=== PATIENT | female | born 1980 | race Caucasian/White ===

== ENCOUNTER 2018-01-23 09:50 | Inpatient (IN) | payer OTHER ==
[2018-01-23 11:00] VITALS: BMI 29.7
--- NOTE | 2018-01-23 13:21 | HP ---
COWS - Scale Resting Pulse: 2= NE 101-120 Sweatin= Chills/Flushing Restless Observation: 1= Difficult to Sit Still Pupil Size: 0= Normal to Room Light Bone or Joint Aches: 2= Severe Diffuse Aches Runny Nose/ Eye Tearin= Runny Nose/Eyes GI Upset > 30mins: 2= Nausea/Diarrhea Tremor Observation: 2= Slight Tremor Visible Yawning Observation: 1= 1-2x During Session Anxiety or Irritability: 2=Irritable/Anxious Goose Flesh Skin: 3=Piloerection COWS Score: 18 Admission [facility] Chief Complaint: "I need to Detox off of Heroin." Patient is here to Detox from Heroin. Allergies/Adverse Reactions: Allergies Allergy/AdvReac Type Severity Reaction Status Date / Time latex Allergy Severe Rash Verified 01/23/18 10:56 codeine AdvReac Severe Nausea Verified 01/23/18 10:56 History of Present Illness: Patient is a 37 YO female here to Detox from Heroin. Patient had one previous Detox / Rehab admission at [facility] in 07/2015. Patient had a Rehab admission at " [facility]' [facility]) in 2015. Longest period of non-drug use in recent years: approx. 1 year (11/2015 - 11/2016). Exam Limitations: No Limitations - Ebola screening Have you traveled outside of the country in the last 21 days: No Have you had contact with anyone from an Ebola affected area: No Have you been sick,other than usual withdrawal symptoms: No Do you have a fever: No - Review of Systems Constitutional: Chills, Diaphoresis, Loss of Appetite, Malaise, Night Sweats, Changes in sleep EENT: reports: Blurred Vision, Tearing, Nose Congestion, Sinus Pressure Respiratory: reports: SOB with Exertion Cardiac: reports: No Symptoms Reported GI: reports: Diarrhea, Nausea, Poor Appetite, Vomiting, Indigestion : reports: No Symptoms Reported Musculoskeletal: reports: Back Pain, Joint Pain, Muscle Pain, Joint Stiffness Integumentary: reports: No Symptoms Reported Neuro: reports: Headache, Tremors Endocrine: reports: No Symptoms Reported Hematology: reports: No Symptoms Reported Psychiatric: reports: Judgement Intact, Mood/Affect Appropiate, Orientated x3, Anxious, Depressed (On meds.) Other Systems: Reviewed and Negative Patient History - Patient Medical History Hx Anemia: No Hx Asthma: No Hx Chronic Obstructive Pulmonary Disease (COPD): No Hx Cancer: No Hx Cardiac Disorders: No Hx Congestive Heart Failure: No Hx Hypertension: No Hx Hypercholesterolemia: No Hx Pacemaker: No HX Cerebrovascular Accident: No Hx Seizures: No Hx Dementia: No Hx Diabetes: No Hx Gastrointestinal Disorders: No Hx Liver Disease: No Hx Genitourinary Disorders: No Hx Sexually Transmitted Disorders: No Hx Renal Disease (ESRD): No Hx Thyroid Disease: No Hx Human Immunodeficiency Virus (HIV): No (Last Tested: 2014: NEGATIVE.) Hx Hepatitis C: No (Last Tested: 2014: NEGATIVE.) Hx Depression: Yes (On meds.; has not taken for last several weeks.) Hx Suicide Attempt: No (PATIENT DENIES CURRENT SI / HI.) Hx Bipolar Disorder: No Hx Schizophrenia: No Other Medical History: PTSD, Anxiety. Meds. in past,not taken for last several weeks. Hx Migraines - Patient Surgical History Past Surgical History: Yes Hx Neurologic Surgery: No Hx Cataract Extraction: No Hx Cardiac Surgery: No Hx Lung Surgery: No Hx Breast Surgery: Yes (bilateral mastectomy (2015).) Hx Breast Biopsy: No Hx Abdominal Surgery: Yes (removal of fibroid (2015)) Hx Appendectomy: Yes (2009.) Hx Cholecystectomy: No Hx Genitourinary Surgery: No Hx Section: No Hx Orthopedic Surgery: No Hx Hysterectomy: No Other Surgical History: Cyst removed from Ovary (age 18). Anesthesia Reaction: Yes (nausea,vomiting) - PPD History Previous Implant?: Yes Documented Results: Negative w/o proof Implanted On Prior [facility] Admission?: Yes Date: 07/17/15 Results: 0 mm PPD to be Administered?: Yes - Reproductive History Patient is a Female of Child Bearing Age (11 -55 yrs old): Yes LMP comment: Patient reports that she has not menstruated for last several months. Patient : No - Smoking Cessation Smoking history: Never smoked Have you smoked in the past 12 months: No Cigars Per Day: 0 Hx Chewing Tobacco Use: No Initiated information on smoking cessation: No - Substance & Tx. History Hx Alcohol Use: No Hx Substance Use: Yes Substance Use Type: Heroin Hx Substance Use Treatment: Yes (Rehab at [facility] ([facility] [place]): 2015; Detox/Rehab at [facility]; 2015.) - Substances Abused Heroin Route: Inhalation Frequency: Daily Amount used: 10 bags Age of first use: 34 Date of Last Use: 01/21/18 Family Disease History - Family Disease History Family Disease History: Other: Grandparent (Alzheimer's Disease.), Father ( brain CA ), Mother (breast cancer age 19; Living.), Sister (breast CA, Living.) Admission Physical Exam [facility] - Vital Signs Vital Signs: Vital Signs - 24 hr 01/23/18 10:53 Temperature 98.3 F Pulse Rate 110 H Respiratory 20 Rate Blood Pressure 149/85 - Physical General Appearance: Yes: Nourished, Appropriately Dressed, Mild Distress, Tremorous, Sweating, Anxious HEENTM: Yes: Hearing grossly Normal, Normocephalic, Normal Voice, ABBEY, Pharynx Normal Respiratory: Yes: Chest Non-Tender, Lungs Clear, No Respiratory Distress, No Accessory Muscle Use Neck: Yes: No masses,lesions,Nodules, Supple, Trachea in good position Breast: Yes: Breast Exam Deferred Cardiology: Yes: Regular Rhythm, Regular Rate, S1, S2 Abdominal: Yes: Normal Bowel Sounds, Non Tender, Flat, Soft Genitourinary: Yes: Within Normal Limits Back: Yes: Decreased Range of Motion Musculoskeletal: Yes: Gait Steady, Back pain, Joint Stiffness, Muscle Pain Extremities: Yes: Normal Capillary Refill, Tremors Neurological: Yes: Fully Oriented, Alert, Normal Mood/Affect, Normal Response Integumentary: Yes: Normal Color, Dry, Warm Lymphatic: Yes: Within Normal Limits - Diagnostic (1) History of posttraumatic stress disorder (PTSD) Current Visit: Yes Status: Suspected (2) Anxiety and depression Current Visit: Yes Status: Suspected (3) History of bilateral mastectomy Current Visit: Yes Status: Resolved (4) Opioid dependence with withdrawal Current Visit: Yes Status: Acute (5) History of uterine fibroid Current Visit: Yes Status: Resolved (6) History of myomectomy Current Visit: Yes Status: Resolved Cleared for Admission [facility] - Detox or Rehab [facility] Level of Care: Medically Managed Detox Regimen/Protocol: Methadone [facility] Breath Alcohol Content Breath Alcohol Content: 0 Urine Pregancy Test - Result Urine Test Results: Negative- NO Line Present Urine Drug Screen - Results Drug Screen Negative: No Urine Drug Screen Results: OPI-Opiates
[2018-01-23] MEDS ORDERED: MAGNESIUM CITRATE 300 ML BOTTLE PO PRN (13:46)
[2018-01-23] MEDS ORDERED: P-EPHED 60MG/TRIPROLIDI 2.5MG TABLET PO PRN (13:46)
[2018-01-23] MEDS ORDERED: MENTHOL/PHENOL 1 EACH UD MM PRN (13:46)
[2018-01-23] MEDS ORDERED: ACETAMINOPHEN 325 MG TABLET (FP) PO PRN (13:46)
[2018-01-23] MEDS ORDERED: LOPERAMIDE HCL 2 MG CAPSULE PO PRN (13:46)
[2018-01-23] MEDS ORDERED: MAG HYDROX/AL HYDROX/SIMETH 30 ML UNIT-DOSE CUP PO PRN (13:46)
[2018-01-23] MEDS ORDERED: guaiFENesin/D-METHORPHAN HB 10 ML UNIT-DOSE CUPS PO PRN (13:46)
[2018-01-23] MEDS ORDERED: SUMAtriptan SUCCINATE 50 MG TABLET PO PRN (13:52)
[2018-01-23] MEDS ORDERED: cloNIDine HCL 0.1 MG TABLET PO ONE (14:15)
[2018-01-23] MEDS ORDERED: METHADONE HCL 10 MG TABLET (FOR DETOX USE ONLY) PO ONE ×2 (14:15→23:00)
[2018-01-23] MEDS: diazePAM 5 MG TABLET PO PRN ×2 (14:41→20:33)
[2018-01-23] MEDS ORDERED: MELATONIN 5 MG TABLETS PO PRN (22:00)
[2018-01-23] MEDS: THIAMINE HCL 100 MG TABLET (FP) PO SCH (22:30)
[2018-01-24 01:29] LABS: URINE APPEARANCE TURBID; URINE BILIRUBIN NEGATIVE (<2.0 mg/dL); URINE COLOR YELLOW; URINE GLUCOSE (UA) NEGATIVE (NEGATIVE); URINE KETONE NEGATIVE (NEGATIVE); URINE NITRITE POSITIVE (NEGATIVE); URINE UROBILINOGEN NEGATIVE mg/dL (0.2-1.0)
[2018-01-24 01:38] LABS: URINE LEUK ESTERASE 2+ (NEGATIVE); URINE PROTEIN 1+ (NEGATIVE)
[2018-01-24 01:59] LABS: EPI CELLS MANY /HPF (FEW); URINE BACTERIA MANY /hpf (NONE SEEN); URINE MUCUS MANY
[2018-01-24] MEDS: diazePAM 5 MG TABLET PO PRN ×4 (06:24→21:08)
[2018-01-24] MEDS ORDERED: METHADONE HCL 10 MG TABLET (FOR DETOX USE ONLY) PO ONE (10:00)
--- NOTE | 2018-01-24 10:00 | PN ---
S COWS - Scale Resting Pulse: 1= [place] 81-100 Sweatin= Chills/Flushing Restless Observation: 1= Difficult to Sit Still Pupil Size: 1= Pupils >than Normal Bone or Joint Aches: 2= Severe Diffuse Aches Runny Nose/ Eye Tearin= Runny Nose/Eyes GI Upset > 30mins: 2= Nausea/Diarrhea Tremor Observation of Outstretched Hands: 2= Slight Tremor Visible Yawning Observation: 2= >3x During Session Anxiety or Irritability: 2=Irritable/Anxious Goose Flesh Skin: 0=Smooth Skin COWS Score: 16 S Progress Note (SOAP) Subjective: joint pain body ache sweat chill hot cold nausea Objective: 01/24/18 09:56 Vital Signs Temperature 97.7 F 01/24/18 09:21 Pulse Rate 85 01/24/18 09:21 Respiratory Rate 18 01/24/18 09:21 Blood Pressure 123/67 01/24/18 09:21 O2 Sat by Pulse Oximetry (%) Laboratory Last Values Urine Color Yellow 01/23/18 23:51 Urine Appearance Turbid 01/23/18 23:51 Urine pH 6.0 (5.0-8.0) D 01/23/18 23:51 Ur Specific [place] 1.012 (1.001-1.035) 01/23/18 23:51 Urine Protein 1+ (NEGATIVE) H 01/23/18 23:51 Urine Glucose (UA) Negative (NEGATIVE) 01/23/18 23:51 Urine Ketones Negative (NEGATIVE) 01/23/18 23:51 Urine Blood Negative (NEGATIVE) 01/23/18 23:51 Urine Nitrite Positive (NEGATIVE) 01/23/18 23:51 Urine Bilirubin Negative (<2.0 mg/dL) 01/23/18 23:51 Urine Urobilinogen Negative mg/dL (0.2-1.0) 01/23/18 23:51 Ur Leukocyte Esterase 2+ (NEGATIVE) H 01/23/18 23:51 Urine WBC (Auto) 21 /hpf (3-5) 01/23/18 23:51 Urine RBC (Auto) None /hpf (0-3) 01/23/18 23:51 Ur Epithelial Cells Many /HPF (FEW) 01/23/18 23:51 Urine Bacteria Many /hpf (NONE SEEN) 01/23/18 23:51 Urine Mucus Many 01/23/18 23:51 lab noted repeat ua Assessment: 01/24/18 10:00 withdrawal sx Plan: continue detox
[2018-01-24 10:28] LABS: HEMATOCRIT 42.3 % (32.4-45.2); HEMOGLOBIN 14.3 GM/dL (10.7-15.3); MCH 28.3 pg (25.7-33.7); MCHC 33.8 g/dl (32.0-36.0); MEAN CELL VOLUME 83.7 fl (80-96); MEAN PLT VOLUME 8.7 fl (7.5-11.1); PLATELET COUNT 333 K/MM3 (134-434); RBC 5.06 M/mm3 (3.60-5.2); RDW 13.3 % (11.6-15.6); WHITE BLOOD COUNT 5.5 K/mm3 (4.0-10.0)
[2018-01-24] MEDS ORDERED: ONDANSETRON *ODT* 4 MG TABLET SL ONE (10:30)
[2018-01-24] MEDS: PRENATAL VITAMINS W/ FOLIC ACID TABLET (FP) PO SCH (10:54)
[2018-01-24 11:33] LABS: CHLORIDE 102 mmol/L (98-107); POTASSIUM 4.5 mmol/L (3.5-5.1); SODIUM 139 mmol/L (136-145)
[2018-01-24 12:39] LABS: ALBUMIN 4.3 g/dl (3.4-5.0); ALK PHOS 69 U/L (45-117); BILIRUBIN,TOTAL 0.8 mg/dL (0.2-1.0); BLOOD UREA NITROGEN 7 mg/dL (7-18); CALCIUM 9.8 mg/dL (8.5-10.1); CREATININE 0.7 mg/dL (0.55-1.02); GLUCOSE,RANDOM 109 mg/dL (74-106); SGOT/AST 28 U/L (15-37); SGPT/ALT 23 U/L (12-78); TOT PROT 8.2 g/dl (6.4-8.2)
[2018-01-24 12:58] LABS: ANION GAP 10 (8-16); CO2 27 mmol/L (21-32)
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
--- NOTE | 2018-01-24 14:00 | EKG ---
Test Reason : Blood Pressure : / mmHG Vent. Rate : 100 BPM Atrial Rate : 100 BPM P-R Int : 148 ms QRS Dur : 086 ms QT Int : 354 ms P-R-T Axes : 066 058 063 degrees QTc Int : 456 ms NORMAL SINUS RHYTHM RIGHT ATRIAL ENLARGEMENT BORDERLINE ECG NO PREVIOUS ECGS AVAILABLE Confirmed by JUSTICE DRUMMOND MD ([id number]) on 01/24/2018 2:00:23 PM Referred By: Confirmed By:JUSTICE DRUMMOND MD
[2018-01-24] MEDS: traZODone HCL 100 MG TABLET (FP) PO SCH (22:32)
[2018-01-24] MEDS: THIAMINE HCL 100 MG TABLET (FP) PO SCH (22:32)
[2018-01-24] MEDS: IBUPROFEN 400 MG TABLET (FP) PO PRN (23:03)
[2018-01-25] MEDS ORDERED: METHADONE HCL 5 MG TABLET (FOR DETOX USE ONLY) PO ONE (10:00)
[2018-01-25] MEDS: CITALOPRAM HYDROBROMIDE 20 MG TABLET (FP) PO SCH (10:35)
[2018-01-25] MEDS: PRENATAL VITAMINS W/ FOLIC ACID TABLET (FP) PO SCH (10:35)
[2018-01-25] MEDS: diazePAM 5 MG TABLET PO PRN ×4 (10:37→22:21)
[2018-01-25] MEDS: IBUPROFEN 400 MG TABLET (FP) PO PRN ×2 (11:37→22:22)
[2018-01-25] MEDS ORDERED: ONDANSETRON *ODT* 4 MG TABLET SL ONE (11:45)
--- NOTE | 2018-01-25 13:17 | PN ---
S COWS - Scale Resting Pulse: 1= [place] 81-100 Sweatin= Chills/Flushing Restless Observation: 1= Difficult to Sit Still Pupil Size: 0= Normal to Room Light Bone or Joint Aches: 1= Mild Discomfort Runny Nose/ Eye Tearin= Nasal Congestion GI Upset > 30mins: 2= Nausea/Diarrhea Tremor Observation of Outstretched Hands: 1= Tremor [place], Not Seen Yawning Observation: 2= >3x During Session Anxiety or Irritability: 2=Irritable/Anxious Goose Flesh Skin: 0=Smooth Skin COWS Score: 12 S Progress Note (SOAP) Subjective: feeling better mild sweat less tremor tolerated food and fluid better mild gi distress wants to begin recovery earlier Objective: 01/25/18 13:16 Vital Signs Temperature 96 F L 01/25/18 09:34 Pulse Rate 87 01/25/18 09:34 Respiratory Rate 18 01/25/18 09:34 Blood Pressure 108/66 01/25/18 09:34 O2 Sat by Pulse Oximetry (%) Laboratory Last Values WBC 5.5 K/mm3 (4.0-10.0) D 01/24/18 06:00 RBC 5.06 M/mm3 (3.60-5.2) 01/24/18 06:00 Hgb 14.3 GM/dL (10.7-15.3) 01/24/18 06:00 Hct 42.3 % (32.4-45.2) 01/24/18 06:00 MCV 83.7 fl (80-96) 01/24/18 06:00 MCH 28.3 pg (25.7-33.7) 01/24/18 06:00 MCHC 33.8 g/dl (32.0-36.0) 01/24/18 06:00 RDW 13.3 % (11.6-15.6) 01/24/18 06:00 Plt Count 333 K/MM3 (134-434) D 01/24/18 06:00 MPV 8.7 fl (7.5-11.1) 01/24/18 06:00 Sodium 139 mmol/L (136-145) 01/24/18 06:00 Potassium 4.5 mmol/L (3.5-5.1) 01/24/18 06:00 Chloride 102 mmol/L (98-107) 01/24/18 06:00 Carbon Dioxide 27 mmol/L (21-32) 01/24/18 06:00 Anion Gap 10 (8-16) 01/24/18 06:00 BUN 7 mg/dL (7-18) 01/24/18 06:00 Creatinine 0.7 mg/dL (0.55-1.02) 01/24/18 06:00 Creat Clearance w eGFR > 60 (>60) 01/24/18 06:00 Random Glucose 109 mg/dL (74-106) H 01/24/18 06:00 Calcium 9.8 mg/dL (8.5-10.1) 01/24/18 06:00 Total Bilirubin 0.8 mg/dL (0.2-1.0) D 01/24/18 06:00 AST 28 U/L (15-37) 01/24/18 06:00 ALT 23 U/L (12-78) 01/24/18 06:00 Alkaline Phosphatase 69 U/L (45-117) 01/24/18 06:00 Total Protein 8.2 g/dl (6.4-8.2) 01/24/18 06:00 Albumin 4.3 g/dl (3.4-5.0) 01/24/18 06:00 Urine Color Yellow 01/23/18 23:51 Urine Appearance Turbid 01/23/18 23:51 Urine pH 6.0 (5.0-8.0) D 01/23/18 23:51 Ur Specific [place] 1.012 (1.001-1.035) 01/23/18 23:51 Urine Protein 1+ (NEGATIVE) H 01/23/18 23:51 Urine Glucose (UA) Negative (NEGATIVE) 01/23/18 23:51 Urine Ketones Negative (NEGATIVE) 01/23/18 23:51 Urine Blood Negative (NEGATIVE) 01/23/18 23:51 Urine Nitrite Positive (NEGATIVE) 01/23/18 23:51 Urine Bilirubin Negative (<2.0 mg/dL) 01/23/18 23:51 Urine Urobilinogen Negative mg/dL (0.2-1.0) 01/23/18 23:51 Ur Leukocyte Esterase 2+ (NEGATIVE) H 01/23/18 23:51 Urine WBC (Auto) 21 /hpf (3-5) 01/23/18 23:51 Urine RBC (Auto) None /hpf (0-3) 01/23/18 23:51 Ur Epithelial Cells Many /HPF (FEW) 01/23/18 23:51 Urine Bacteria Many /hpf (NONE SEEN) 01/23/18 23:51 Urine Mucus Many 01/23/18 23:51 RPR Titer Nonreactive (NONREACTIVE) 01/24/18 06:00 01/25/18 13:19 uti Assessment: 01/25/18 13:19 withdrawal sx uti 01/25/18 13:20 modify opioid detox regimen Plan: continue detox bactrim ds bid increase oral fluid health teaching on addiction and uti
[2018-01-25] MEDS: SULFAMETHOXAZOLE/TRIMETHOPRIM 800MG/160MG D.S. TABLET PO SCH ×2 (14:41→22:21)
[2018-01-25 14:47] LABS: URINE APPEARANCE CLOUDY; URINE BILIRUBIN NEGATIVE (<2.0 mg/dL); URINE COLOR DKYELLOW; URINE GLUCOSE (UA) NEGATIVE (NEGATIVE); URINE KETONE NEGATIVE (NEGATIVE); URINE LEUK ESTERASE TRACE (NEGATIVE); URINE NITRITE NEGATIVE (NEGATIVE); URINE PROTEIN NEGATIVE (NEGATIVE); URINE UROBILINOGEN NEGATIVE mg/dL (0.2-1.0)
[2018-01-25 14:56] LABS: CALCIUM OXALATE CRYSTALS RARE /hpf (NONE SEEN); EPI CELLS FEW /HPF (FEW); URINE MUCUS FEW
[2018-01-25] MEDS: MAGNESIUM HYDROX 2400MG/30ML ORAL SUSPENSION 30 ML CUP PO PRN (19:00)
[2018-01-25] MEDS: traZODone HCL 100 MG TABLET (FP) PO SCH (22:21)
[2018-01-25] MEDS: THIAMINE HCL 100 MG TABLET (FP) PO SCH (22:21)
[2018-01-26] MEDS ORDERED: METHADONE HCL 5 MG TABLET (FOR DETOX USE ONLY) PO ONE (10:00)
[2018-01-26] MEDS ORDERED: METHADONE HCL 10 MG TABLET (FOR DETOX USE ONLY) PO ONE (10:00)
[2018-01-26] MEDS: SULFAMETHOXAZOLE/TRIMETHOPRIM 800MG/160MG D.S. TABLET PO SCH ×2 (10:43→22:18)
[2018-01-26] MEDS: CITALOPRAM HYDROBROMIDE 20 MG TABLET (FP) PO SCH (10:43)
[2018-01-26] MEDS: PRENATAL VITAMINS W/ FOLIC ACID TABLET (FP) PO SCH (10:43)
--- NOTE | 2018-01-26 12:09 | PN ---
[facility] Progress Note (SOAP) Subjective: feeling better no tremor sweat slept throughout the night social with peers in day room Objective: 01/26/18 12:08 Vital Signs Temperature 98.2 F 01/26/18 09:33 Pulse Rate 91 H 01/26/18 09:33 Respiratory Rate 18 01/26/18 09:33 Blood Pressure 130/75 01/26/18 09:33 O2 Sat by Pulse Oximetry (%) Laboratory Last Values WBC 5.5 K/mm3 (4.0-10.0) D 01/24/18 06:00 RBC 5.06 M/mm3 (3.60-5.2) 01/24/18 06:00 Hgb 14.3 GM/dL (10.7-15.3) 01/24/18 06:00 Hct 42.3 % (32.4-45.2) 01/24/18 06:00 MCV 83.7 fl (80-96) 01/24/18 06:00 MCH 28.3 pg (25.7-33.7) 01/24/18 06:00 MCHC 33.8 g/dl (32.0-36.0) 01/24/18 06:00 RDW 13.3 % (11.6-15.6) 01/24/18 06:00 Plt Count 333 K/MM3 (134-434) D 01/24/18 06:00 MPV 8.7 fl (7.5-11.1) 01/24/18 06:00 Sodium 139 mmol/L (136-145) 01/24/18 06:00 Potassium 4.5 mmol/L (3.5-5.1) 01/24/18 06:00 Chloride 102 mmol/L (98-107) 01/24/18 06:00 Carbon Dioxide 27 mmol/L (21-32) 01/24/18 06:00 Anion Gap 10 (8-16) 01/24/18 06:00 BUN 7 mg/dL (7-18) 01/24/18 06:00 Creatinine 0.7 mg/dL (0.55-1.02) 01/24/18 06:00 Creat Clearance w eGFR > 60 (>60) 01/24/18 06:00 Random Glucose 109 mg/dL (74-106) H 01/24/18 06:00 Calcium 9.8 mg/dL (8.5-10.1) 01/24/18 06:00 Total Bilirubin 0.8 mg/dL (0.2-1.0) D 01/24/18 06:00 AST 28 U/L (15-37) 01/24/18 06:00 ALT 23 U/L (12-78) 01/24/18 06:00 Alkaline Phosphatase 69 U/L (45-117) 01/24/18 06:00 Total Protein 8.2 g/dl (6.4-8.2) 01/24/18 06:00 Albumin 4.3 g/dl (3.4-5.0) 01/24/18 06:00 Urine Color Dkyellow 01/25/18 11:00 Urine Appearance Cloudy 01/25/18 11:00 Urine pH 6.0 (5.0-8.0) 01/25/18 11:00 Ur Specific [place] 1.019 (1.001-1.035) 01/25/18 11:00 Urine Protein Negative (NEGATIVE) 01/25/18 11:00 Urine Glucose (UA) Negative (NEGATIVE) 01/25/18 11:00 Urine Ketones Negative (NEGATIVE) 01/25/18 11:00 Urine Blood Negative (NEGATIVE) 01/25/18 11:00 Urine Nitrite Negative (NEGATIVE) 01/25/18 11:00 Urine Bilirubin Negative (<2.0 mg/dL) 01/25/18 11:00 Urine Urobilinogen Negative mg/dL (0.2-1.0) 01/25/18 11:00 Ur Leukocyte Esterase Trace (NEGATIVE) 01/25/18 11:00 Urine WBC (Auto) 23 /hpf (3-5) 01/25/18 11:00 Urine RBC (Auto) 17 /hpf (0-3) 01/25/18 11:00 Ur Epithelial Cells Few /HPF (FEW) 01/25/18 11:00 Calcium Oxalate Crystal Rare /hpf (NONE SEEN) 01/25/18 11:00 Urine Bacteria Many /hpf (NONE SEEN) 01/23/18 23:51 Urine Mucus Few 01/25/18 11:00 RPR Titer Nonreactive (NONREACTIVE) 01/24/18 06:00 lab noted gu asymtpomatic Assessment: 01/26/18 12:09 mild withdrawal sx Plan: medically supervised detox
[2018-01-26] MEDS: MAGNESIUM HYDROX 2400MG/30ML ORAL SUSPENSION 30 ML CUP PO PRN (12:22)
[2018-01-26] MEDS: IBUPROFEN 400 MG TABLET (FP) PO PRN ×2 (12:22→22:17)
[2018-01-26] MEDS: THIAMINE HCL 100 MG TABLET (FP) PO SCH (22:18)
[2018-01-26] MEDS: traZODone HCL 100 MG TABLET (FP) PO SCH (22:18)
[2018-01-27] MEDS ORDERED: METHADONE HCL 5 MG TABLET (FOR DETOX USE ONLY) PO ONE (06:00)
[2018-01-27 09:47] VITALS: BP 106/55; PULSE 77; TEMP 97.9
[2018-01-27] MEDS ORDERED: METHADONE HCL 10 MG TABLET (FOR DETOX USE ONLY) PO ONE (10:00)
[2018-01-27] MEDS: CITALOPRAM HYDROBROMIDE 20 MG TABLET (FP) PO SCH (10:35)
[2018-01-27] MEDS: SULFAMETHOXAZOLE/TRIMETHOPRIM 800MG/160MG D.S. TABLET PO SCH (10:35)
[2018-01-27] MEDS: PRENATAL VITAMINS W/ FOLIC ACID TABLET (FP) PO SCH (10:35)
[2018-01-27] MEDS: IBUPROFEN 400 MG TABLET (FP) PO PRN (10:36)
--- NOTE | 2018-01-27 11:12 | PN ---
S Progress Note (SOAP) Subjective: ALERT,NO COMPLAINT Objective: 01/27/18 11:11 Vital Signs Temperature 97.9 F 01/27/18 09:47 Pulse Rate 77 01/27/18 09:47 Respiratory Rate 18 01/27/18 09:47 Blood Pressure 106/55 01/27/18 09:47 O2 Sat by Pulse Oximetry (%) Assessment: 01/27/18 11:11 DETOX COMPLETED,NO WITHDRAWAL SYMPTOM Plan: DISCHARGE TODAY,FOLLOW UP WITH AFTER CARE PROGRAM ARRANGEMENT
--- NOTE | 2018-01-27 11:16 | DS ---
[facility] Detox Discharge Summary Admission Date: 01/23/18 Discharge Date: 01/27/18 - History Present History: Opioid Dependence Additional Comments: FOLLOW UP WITH AFTER CARE PROGRAM ARRANGEMENT Pertinent Past History: PTSD HISTORY OF BILATERAL MASTECTOMY HISTORY OF MYOMECTOMY - Physical Exam Results Vital Signs: Vital Signs Temperature 97.9 F 01/27/18 09:47 Pulse Rate 77 01/27/18 09:47 Respiratory Rate 18 01/27/18 09:47 Blood Pressure 106/55 01/27/18 09:47 O2 Sat by Pulse Oximetry (%) - Treatment Hospital Course: Detox Protocol Followed, Detoxed Safely, Responded well, Discharged Condition Good Patient has Accepted a Rehab Referral to: DECLINED - Medication Discharge Medications: Ambulatory Orders Lamotrigine [LaMICtal -] 100 mg PO BID #60 tablet 07/16/15 Citalopram Hydrobromide [Celexa -] 40 mg PO DAILY 06/16/16 Sumatriptan Succinate [Imitrex -] 100 mg PO DAILY PRN 06/16/16 Topiramate [Topamax] 200 mg PO BID 06/16/16 Trazodone HCl 100 mg PO HS 01/23/18 Bupropion HCl [Wellbutrin Xl -] 150 mg PO DAILY 01/24/18 - Diagnosis (1) Opioid dependence with withdrawal Current Visit: Yes Status: Acute (2) History of posttraumatic stress disorder (PTSD) Current Visit: Yes Status: Suspected (3) History of bilateral mastectomy Current Visit: Yes Status: Resolved (4) History of myomectomy Current Visit: Yes Status: Resolved - AMA Did Patient Leave Against Medical Advice: No
[2018-01-28] MEDS ORDERED: METHADONE HCL 5 MG TABLET (FOR DETOX USE ONLY) PO ONE (06:00)
== END 2018-01-27 11:03 | disposition home or self-care (01) | DRG 773 ==
LOC: YASAS 09:50 → Y6N 13:28
PROVIDERS: ADMIT Surgery; ATTEND Surgery
PROC: HZ2ZZZZ Detoxification Services for Substance Abuse Treatment (ICD-10-PCS; principal; 2018-01-23)
DX: F11.23 Opioid dependence with withdrawal (principal); F43.10 Post-traumatic stress disorder, unspecified; F33.9 Major depressive disorder, recurrent, unspecified; F41.9 Anxiety disorder, unspecified; G47.00 Insomnia, unspecified; Z86.69 Personal history of other diseases of the nervous system and sense organs; Z86.018 Personal history of other benign neoplasm; Z90.13 Acquired absence of bilateral breasts and nipples
CPT/HCPCS: 36415; 80053; 81003; 81015; 85027; 86593; 93005; 93010; J0735; Q0162